=== PATIENT | male | born 1985 | race Caucasian/White ===

== ENCOUNTER 2023-06-23 13:13 | Inpatient (IN) | payer OTHER ==
[~2023-06-23] VITALS: Ht 162.6 cm; Wt 68.1 kg
[2023-06-23 14:10] VITALS: BP 123/80; PULSE 83; RESP 18; TEMP 98.1; O2SAT 98
[2023-06-23] MEDS ORDERED: BISACODYL 10 MG RECTAL RECTAL SUPPOSITORY PR PRN (15:30)
[2023-06-23] MEDS ORDERED: LACTULOSE 20 GM/30 ML SOLUTION UDCUP PO PRN (15:30)
[2023-06-23] MEDS: HEPARIN SODIUM,PORCINE 5,000 UNITS/ML VIAL SQ SCH ×2 (16:37→23:52)
[2023-06-23] MEDS: ACETAMINOPHEN 325 MG TABLET PO PRN ×2 (16:41→23:53)
[2023-06-23] MEDS: MetFORMIN HCL 500 MG TABLET PO SCH ×2 (17:30→17:55)
[2023-06-23 20:45] VITALS: O2SAT 98
[2023-06-23 20:47] VITALS: BP 132/76; PULSE 101; RESP 18; TEMP 98; O2SAT 98
[2023-06-23] MEDS: DOXYCYCLINE HYCLATE 100 MG TABLET PO SCH (20:57)
[2023-06-23] MEDS: MELATONIN 5 MG TABLET PO PRN (20:57)
[2023-06-23] MEDS: SENNOSIDES/DOCUSATE SODIUM 8.6-50 MG TABLET PO SCH (21:00)
[2023-06-23] MEDS: ETHYL ALCOHOL 62% ANTISEPTIC NASAL SANITIZER 0.6 ML AMPUL NASAL SCH (21:46)
[2023-06-24 07:40] LABS: BASOPHILS % (AUTO) 0.7 % (0.0-2.0); EOSINOPHILS % (AUTO) 1.2 % (1.0-6.0); HEMATOCRIT 27.4 % (41-53); HEMOGLOBIN 9.3 g/dL (13.5-17.5); LYMPHOCYTES # (AUTO) 1.6 K/uL (1.0-4.8); LYMPHOCYTES % (AUTO) 16.1 % (22.0-44.0); MEAN CORPUSCULAR HEMOGLOBIN 28.3 pg (26.0-34.0); MEAN CORPUSCULAR HGB CONC 33.9 G/dL (31.0-37.0); MEAN CORPUSCULAR VOLUME 84 fL (80-100); MONOCYTES # (AUTO) 0.9 K/uL (0.1-1.0); MONOCYTES % (AUTO) 8.6 % (2.0-9.0); NEUTROPHILS # (AUTO) 7.5 K/uL (1.8-7.7); NEUTROPHILS % (AUTO) 73.4 % (40.0-70.0); PLATELET COUNT (AUTO) 446 K/uL (150-450); RED BLOOD CELL COUNT(AUTO) 3.28 MIL/uL (4.50-5.90); RED CELL DISTRIBUTION WIDTH 16.6 % (11.5-14.5); WHITE BLOOD COUNT (AUTO) 10.2 K/uL (4.5-11.0)
[2023-06-24 08:11] LABS: ALANINE AMINOTRANSFERASE 70 U/L (12-78); ALBUMIN 3.1 g/dL (3.4-5.0); ALKALINE PHOSPHATASE 79 U/L (46-116); ANION GAP 10 mmol/L (8-16); ASPARTATE AMINOTRANSFERASE 21 U/L (15-37); BILIRUBIN,TOTAL 0.5 mg/dL (0.1-1.0); CALCIUM, TOTAL 9.3 mg/dL (8.8-10.5); CARBON DIOXIDE 27 mmol/L (22-29); CHLORIDE 101 mmol/L (98-107); CREATININE 0.64 mg/dL (0.60-1.30); GLOMERULAR FILTR. RATE CALC > 60 mL/min (>60); GLUCOSE,RANDOM 118 mg/dL (70-110); POTASSIUM 4.1 mmol/L (3.5-5.1); SODIUM SERUM 138 mmol/L (136-145); TOTAL PROTEIN, SERUM 7.4 g/dL (6.4-8.2); UREA NITROGEN, BLOOD 16 mg/dL (7-18)
[2023-06-24] MEDS: MetFORMIN HCL 500 MG TABLET PO SCH ×2 (08:21→16:31)
[2023-06-24] MEDS: CHOLECALCIFEROL (VIT D3) 2,000 UNITS [50 MCG] TABLET PO SCH (08:21)
[2023-06-24] MEDS: DOXYCYCLINE HYCLATE 100 MG TABLET PO SCH ×2 (08:22→20:29)
[2023-06-24] MEDS: HEPARIN SODIUM,PORCINE 5,000 UNITS/ML VIAL SQ SCH ×3 (08:23→23:39)
[2023-06-24] MEDS: ETHYL ALCOHOL 62% ANTISEPTIC NASAL SANITIZER 0.6 ML AMPUL NASAL SCH ×2 (08:24→20:28)
[2023-06-24] MEDS: SENNOSIDES/DOCUSATE SODIUM 8.6-50 MG TABLET PO SCH ×2 (08:33→20:29)
[2023-06-24 10:12] VITALS: BP 131/83; PULSE 96; RESP 18; TEMP 98.1; O2SAT 98
[2023-06-24 10:36] VITALS: O2SAT 98
[2023-06-24 13:07] VITALS: RESP 18
[2023-06-24] MEDS: ACETAMINOPHEN 325 MG TABLET PO PRN ×2 (13:08→23:40)
[2023-06-24] MEDS: OxyCODONE HCL 5 MG IR TABLET PO PRN (14:49)
[2023-06-24 20:00] VITALS: BP 103/65; PULSE 98; RESP 20; TEMP 98.1; O2SAT 97
[2023-06-24] MEDS: MELATONIN 5 MG TABLET PO PRN (20:29)
[2023-06-25] MEDS: HEPARIN SODIUM,PORCINE 5,000 UNITS/ML VIAL SQ SCH ×2 (07:29→15:48)
[2023-06-25] MEDS: MetFORMIN HCL 500 MG TABLET PO SCH ×2 (07:29→15:51)
[2023-06-25] MEDS: DOXYCYCLINE HYCLATE 100 MG TABLET PO SCH ×2 (07:29→19:34)
[2023-06-25] MEDS: SENNOSIDES/DOCUSATE SODIUM 8.6-50 MG TABLET PO SCH ×2 (07:29→19:33)
[2023-06-25] MEDS: CHOLECALCIFEROL (VIT D3) 2,000 UNITS [50 MCG] TABLET PO SCH (07:29)
[2023-06-25] MEDS: ETHYL ALCOHOL 62% ANTISEPTIC NASAL SANITIZER 0.6 ML AMPUL NASAL SCH ×2 (07:30→19:31)
[2023-06-25 08:05] VITALS: BP 123/79; PULSE 100; RESP 18; TEMP 98.1; O2SAT 98
[2023-06-25 09:38] VITALS: O2SAT 98
[2023-06-25] MEDS: OxyCODONE HCL 5 MG IR TABLET PO PRN ×2 (14:10→19:33)
[2023-06-25] MEDS: DICLOFENAC SODIUM 1% 100 GM GEL [4GM] TP SCH ×2 (15:48→19:32)
[2023-06-25 19:27] VITALS: BP 135/75; PULSE 103; RESP 18; TEMP 98.7; O2SAT 100
[2023-06-25] MEDS: MELATONIN 5 MG TABLET PO PRN (19:33)
[2023-06-25 21:12] VITALS: O2SAT 100
[2023-06-26] MEDS: HEPARIN SODIUM,PORCINE 5,000 UNITS/ML VIAL SQ SCH ×4 (01:04→23:03)
[2023-06-26 08:05] VITALS: BP 124/68; PULSE 76; RESP 18; TEMP 98; O2SAT 99
[2023-06-26] MEDS: DOXYCYCLINE HYCLATE 100 MG TABLET PO SCH ×2 (08:24→20:10)
[2023-06-26] MEDS: MetFORMIN HCL 500 MG TABLET PO SCH ×2 (08:24→16:45)
[2023-06-26] MEDS: ETHYL ALCOHOL 62% ANTISEPTIC NASAL SANITIZER 0.6 ML AMPUL NASAL SCH ×2 (08:24→20:09)
[2023-06-26] MEDS: CHOLECALCIFEROL (VIT D3) 2,000 UNITS [50 MCG] TABLET PO SCH (08:24)
[2023-06-26] MEDS: DICLOFENAC SODIUM 1% 100 GM GEL [4GM] TP SCH ×3 (08:25→20:11)
[2023-06-26] MEDS: SENNOSIDES/DOCUSATE SODIUM 8.6-50 MG TABLET PO SCH ×2 (08:30→20:18)
[2023-06-26] MEDS: ACETAMINOPHEN 325 MG TABLET PO PRN ×2 (08:34→16:49)
[2023-06-26 11:27] VITALS: O2SAT 98
[2023-06-26] MEDS: MELATONIN 5 MG TABLET PO PRN (20:11)
[2023-06-26 21:44] VITALS: O2SAT 100
[2023-06-27 08:15] VITALS: BP 123/75; PULSE 89; RESP 18; TEMP 98.8; O2SAT 99
[2023-06-27] MEDS: SENNOSIDES/DOCUSATE SODIUM 8.6-50 MG TABLET PO SCH ×3 (08:17→20:54)
[2023-06-27] MEDS: CHOLECALCIFEROL (VIT D3) 2,000 UNITS [50 MCG] TABLET PO SCH (08:20)
[2023-06-27] MEDS: ETHYL ALCOHOL 62% ANTISEPTIC NASAL SANITIZER 0.6 ML AMPUL NASAL SCH ×2 (08:20→20:44)
[2023-06-27] MEDS: DOXYCYCLINE HYCLATE 100 MG TABLET PO SCH ×2 (08:20→20:45)
[2023-06-27] MEDS: HEPARIN SODIUM,PORCINE 5,000 UNITS/ML VIAL SQ SCH ×3 (08:21→23:45)
[2023-06-27] MEDS: MetFORMIN HCL 500 MG TABLET PO SCH ×2 (08:23→17:30)
[2023-06-27] MEDS: DICLOFENAC SODIUM 1% 100 GM GEL [4GM] TP SCH (08:27)
[2023-06-27 09:14] VITALS: O2SAT 99
[2023-06-27 10:10] VITALS: RESP 18
[2023-06-27] MEDS: OxyCODONE HCL 5 MG IR TABLET PO PRN (17:40)
[2023-06-27 20:01] VITALS: BP 127/77; PULSE 102; RESP 18; TEMP 98.6; O2SAT 100
[2023-06-27] MEDS: MELATONIN 5 MG TABLET PO PRN (20:45)
[2023-06-27 22:25] VITALS: O2SAT 100
[2023-06-28 08:01] VITALS: BP 128/80; PULSE 96; RESP 18; TEMP 98.7; O2SAT 98
[2023-06-28] MEDS: MetFORMIN HCL 500 MG TABLET PO SCH ×2 (08:04→16:31)
[2023-06-28] MEDS: ETHYL ALCOHOL 62% ANTISEPTIC NASAL SANITIZER 0.6 ML AMPUL NASAL SCH ×2 (08:04→20:09)
[2023-06-28] MEDS: HEPARIN SODIUM,PORCINE 5,000 UNITS/ML VIAL SQ SCH ×3 (08:04→23:31)
[2023-06-28] MEDS: CHOLECALCIFEROL (VIT D3) 2,000 UNITS [50 MCG] TABLET PO SCH (08:05)
[2023-06-28] MEDS: SENNOSIDES/DOCUSATE SODIUM 8.6-50 MG TABLET PO SCH ×2 (08:05→20:09)
[2023-06-28] MEDS: DOXYCYCLINE HYCLATE 100 MG TABLET PO SCH ×2 (08:06→20:09)
[2023-06-28 09:07] VITALS: O2SAT 98
[2023-06-28] MEDS: OxyCODONE HCL 5 MG IR TABLET PO PRN (11:14)
[2023-06-28 20:01] VITALS: BP 102/64; PULSE 95; RESP 19; TEMP 98.9; O2SAT 98
[2023-06-28] MEDS: MELATONIN 5 MG TABLET PO PRN (20:08)
[2023-06-28] MEDS: DICLOFENAC SODIUM 1% 100 GM GEL [4GM] TP PRN (20:14)
[2023-06-28 20:49] VITALS: O2SAT 98
[2023-06-29 08:00] VITALS: BP 124/73; PULSE 99; RESP 18; TEMP 98.4; O2SAT 99
[2023-06-29] MEDS: HEPARIN SODIUM,PORCINE 5,000 UNITS/ML VIAL SQ SCH (08:00)
[2023-06-29] MEDS: MetFORMIN HCL 500 MG TABLET PO SCH (08:20)
[2023-06-29] MEDS: DOXYCYCLINE HYCLATE 100 MG TABLET PO SCH (08:21)
[2023-06-29] MEDS: CHOLECALCIFEROL (VIT D3) 2,000 UNITS [50 MCG] TABLET PO SCH (08:21)
[2023-06-29] MEDS: SENNOSIDES/DOCUSATE SODIUM 8.6-50 MG TABLET PO SCH (08:22)
[2023-06-29] MEDS: ETHYL ALCOHOL 62% ANTISEPTIC NASAL SANITIZER 0.6 ML AMPUL NASAL SCH (08:22)
[2023-06-29] MEDS: DICLOFENAC SODIUM 1% 100 GM GEL [4GM] TP PRN (08:23)
[2023-06-29 08:47] VITALS: O2SAT 98
[2023-06-29] MEDS ORDERED: ACET325T51 PO (09:13)
[2023-06-29] MEDS ORDERED: METF-1211 PO (09:13)
[2023-06-29] MEDS ORDERED: CHOL200059 PO (09:13)
[2023-06-29] MEDS ORDERED: SENN-338 PO (09:13)
[2023-06-29] MEDS ORDERED: DOXY-354 PO (09:13)
[2023-06-29] MEDS ORDERED: METR45GE TP (09:13)
== END 2023-06-29 11:40 | disposition home or self-care (01) | DRG 543 ==
LOC: 2WR 14:08
PROVIDERS: ADMIT Physical Medicine & Rehabilitation; ATTEND Physical Medicine & Rehabilitation
DX: M84.48XA Pathological fracture, other site, initial encounter for fracture (principal); C64.9 Malignant neoplasm of unspecified kidney, except renal pelvis; E46 Unspecified protein-calorie malnutrition; C79.51 Secondary malignant neoplasm of bone; E87.1 Hypo-osmolality and hyponatremia; D64.9 Anemia, unspecified; E55.9 Vitamin D deficiency, unspecified; K76.0 Fatty (change of) liver, not elsewhere classified; M21.371 Foot drop, right foot; M21.372 Foot drop, left foot; R73.03 Prediabetes; L71.9 Rosacea, unspecified; D49.7 Neoplasm of unspecified behavior of endocrine glands and other parts of nervous system; R26.9 Unspecified abnormalities of gait and mobility; R06.81 Apnea, not elsewhere classified; M79.605 Pain in left leg; M54.50 Low back pain, unspecified; M79.604 Pain in right leg; R53.1 Weakness; Z88.0 Allergy status to penicillin; Z79.899 Other long term (current) drug therapy; Z68.25 Body mass index [BMI] 25.0-25.9, adult; Z98.1 Arthrodesis status
CPT/HCPCS: 80053; 85025; 87081; 97110; 97116; 97162; 97166; 97530; 97535; 99366; J1644; Q9967